=== PATIENT | female | born 1995 | race Caucasian/White ===

== ENCOUNTER 2021-12-16 23:20 | Emergency (ER) | payer OTHER ==
[~2021-12-16] VITALS: Ht 162.6 cm; Wt 91.6 kg
[2021-12-16 23:28] VITALS: BP 141/78
--- NOTE | 2021-12-16 23:32 | NUR ---
PT TAKEN TO ER BED 07
[2021-12-16] MEDS ORDERED: DEXAMETHASONE 4 MG/ML VIAL PO ONE (23:45)
[2021-12-16] MEDS ORDERED: IBUPROFEN 600 MG TAB PO ONE (23:45)
--- NOTE | 2021-12-16 23:45 | NUR ---
BREANNA KWON AT BEDSIDE EXAMINING PT.
--- NOTE | 2021-12-16 23:52 | NUR ---
26 y/o female bib self, c/o throat pain x2 days. PT STATES SHE HAS RECENTLY GOTTEN OVER A SICKNESS THAT LASTED ALL LAST WEEK INCLUDING SORE THROAT. HER ONLY SYMPTOM NOW IS SORE THROAT AND TODAY IS THE 2ND DAY THAT SHE STATES THE PAIN IS TOO MUCH. DENIES N/V; SKIN IS PINK/WARM/DRY; AAOX4 WITH EVEN AND STEADY GAIT; LUNGS CLEAR BL; HR EVEN AND REGULAR; PT DENIES ANY FEVER, CP, SOB, OR COUGH AT THIS TIME; PATIENT STATES PAIN OF 6/10 AT THIS TIME; VSS; PATIENT POSITIONED FOR COMFORT; HOB ELEVATED; BEDRAILS UP X2; BED DOWN. ER MD MADE AWARE OF PT STATUS. HX: ASTHMA NKA MEDS: ALBUTEROL
--- NOTE | 2021-12-17 00:11 | NUR ---
STREP SWAB COLLECTED AND WALKED TO LAB
[2021-12-17] MEDS ORDERED: AMOX-1230 PO (01:38)
[2021-12-17] MEDS ORDERED: BENZ-300 PO (01:38)
[2021-12-17 01:59] VITALS: BP 141/78
--- NOTE | 2021-12-17 02:00 | NUR ---
Patient discharged with v/s stable. Written and verbal after care instructions given and explained. Patient alert, oriented and verbalized understanding of instructions. Ambulatory with steady gait. All questions addressed prior to discharge. ID band removed. Patient advised to follow up with PMD. Rx of Amoxicillin/Potassium Clav and Benzocaine/Menthol given. Patient educated on indication of medication including possible reaction and side effects. Opportunity to ask questions provided and answered. VSS, A/OX4, UNLABORED BREATHING, AMBULATORY, AND CALM DEMEANOR.
== END 2021-12-17 01:58 | disposition home or self-care (01) ==
LOC: MED 23:20
DX: J02.9 Acute pharyngitis, unspecified (principal); H92.01 Otalgia, right ear; J45.909 Unspecified asthma, uncomplicated
CPT/HCPCS: 87081; 99283; J1100

== ENCOUNTER 2023-05-18 17:13 | Emergency (ER) | payer OTHER ==
[~2023-05-18] VITALS: Ht 162.6 cm; Wt 87.3 kg
[~2023-05-18 17:13] MED LIST: AMOX-1230 PO; BENZ-300 PO
[2023-05-18 17:34] VITALS: BP 154/79; PULSE 125; RESP 20; TEMP 101.6
[2023-05-18] MEDS ORDERED: ACETAMINOPHEN EXTRA STRENGTH 500 MG TAB PO ONE (17:55)
[2023-05-18 19:28] VITALS: BP 133/82; PULSE 127; RESP 18
[2023-05-18] MEDS ORDERED: IBUPROFEN 600 MG TAB PO ONE (19:40)
[2023-05-18 19:44] LABS: FLU A ANTIGEN negative (NEGATIVE); FLU B ANTIGEN NEGATIVE (NEGATIVE)
[2023-05-18 20:11] LABS: APPEARANCE,URINE CLEAR (CLEAR); BILIRUBIN,URINE NEGATIVE (NEGATIVE); BLOOD, URINE TRACE-I (NEGATIVE); COLOR,URINE YELLOW (YELLOW); LEUKOCYTE ESTERASE ,URINE 1+ (NEGATIVE); NITRITE, URINE NEGATIVE (NEGATIVE); PROTEIN,URINE NEGATIVE (NEGATIVE); UGLUCOSE 2+ (NEGATIVE)
[2023-05-18 20:16] LABS: BACTERIA,URINE FEW /HPF (None Seen); MUCUS,URINE 2+ /LPF (None Seen); SQUAMOUS EPITHELIAL CELL,UR 4-10 (MOD) /LPF (0-3 (FEW))
[2023-05-18 20:30] VITALS: O2SAT 97
[2023-05-18] MEDS ORDERED: IBUP-2218 PO (20:36)
[2023-05-18] MEDS ORDERED: CEPH-588 PO (20:36)
[2023-05-18] MEDS ORDERED: BENZ-300 PO (20:36)
[2023-05-18 20:42] VITALS: TEMP 98.3
== END 2023-05-18 20:42 | disposition home or self-care (01) ==
LOC: MED 17:13
DX: B34.9 Viral infection, unspecified (principal); N39.0 Urinary tract infection, site not specified; R03.0 Elevated blood-pressure reading, without diagnosis of hypertension; R68.83 Chills (without fever); J02.9 Acute pharyngitis, unspecified; H92.03 Otalgia, bilateral; R11.0 Nausea; J45.909 Unspecified asthma, uncomplicated; Z79.899 Other long term (current) drug therapy; Z20.822 Contact with and (suspected) exposure to COVID-19
CPT/HCPCS: 81001; 81025; 87081; 87086; 99283

== ENCOUNTER 2024-04-27 21:38 | Emergency (ER) | payer SELFPAY ==
[~2024-04-27] VITALS: Ht 162.6 cm; Wt 78.1 kg
[~2024-04-27 21:38] MED LIST changes: +CEPH-588 PO; +IBUP-2218 PO
[2024-04-27 21:48] VITALS: BP 121/73; PULSE 81; RESP 14; TEMP 97.6; O2SAT 99
[2024-04-27 22:11] VITALS: O2SAT 99
[2024-04-27 22:18] LABS: APPEARANCE,URINE SLIGHTLY CLOUDY (CLEAR); BILIRUBIN,URINE 1+ (NEGATIVE); BLOOD, URINE 3+ (NEGATIVE); COLOR,URINE RED (YELLOW); LEUKOCYTE ESTERASE ,URINE NEGATIVE (NEGATIVE); NITRITE, URINE NEGATIVE (NEGATIVE); PROTEIN,URINE 2+ (NEGATIVE); UGLUCOSE NEGATIVE (NEGATIVE); UROBILINOGEN,URINE 0.2 EU/dL (0.2 - 1)
[2024-04-27 22:21] LABS: ICTOTEST NEGATIVE (NEGATIVE)
[2024-04-27 22:22] LABS: BACTERIA,URINE 1+ /HPF (None Seen); MUCUS,URINE None Seen /LPF (None Seen); RBC,URINE 50-80 /HPF (0-5); SQUAMOUS EPITHELIAL CELL,UR 0-3 (FEW) /LPF (0-3 (FEW)); WBC,URINE 0-5 /HPF (0-5)
[2024-04-27] MEDS: KETOROLAC 30 MG/ML VIAL IM ONE (22:34)
[2024-04-27 22:36] LABS: BASOPHILS % (AUTO) 0.5 % (0.0-2.0); EOSINOPHILS # (AUTO) 0.1 K/uL (0-0.4); EOSINOPHILS % (AUTO) 1.3 % (0.0-4.0); HEMATOCRIT 34.6 % (36-48); HEMOGLOBIN 11.9 g/dL (12.0-16.0); LYMPHOCYTES % (AUTO) 26.7 % (20.5-51.1); MEAN CORPUSCULAR HEMOGLOBIN 30 pg (27-31); MEAN CORPUSCULAR HGB CONC 34 g/dL (33-37); MEAN CORPUSCULAR VOLUME 87.5 fL (80-94); MONOCYTES # (AUTO) 0.4 K/uL (0.8-1.0); MONOCYTES % (AUTO) 5.6 % (1.7-9.3); NEUTROPHILS % (AUTO) 65.9 % (42.2-75.2); PLATELET COUNT (AUTO) 231 K/uL (140-450); RED BLOOD CELL COUNT(AUTO) 3.95 MIL/uL (4.20-5.40); RED CELL DISTRIBUTION WIDTH 13.9 % (11.6-13.7); WHITE BLOOD COUNT (AUTO) 7.6 K/uL (4.8-10.8)
[2024-04-27 22:51] LABS: ANION GAP 11.4 (8-16); CARBON DIOXIDE 28.3 mmol/L (21-32); CREATININE 0.6 mg/dL (0.6-1.3); POTASSIUM 3.7 mmol/L (3.5-5.1)
[2024-04-28] MEDS ORDERED: MEDR10TA PO (00:26)
== END 2024-04-28 00:34 | disposition home or self-care (01) ==
LOC: MED 21:38
DX: N92.4 Excessive bleeding in the premenopausal period (principal); N93.9 Abnormal uterine and vaginal bleeding, unspecified; J45.909 Unspecified asthma, uncomplicated; Z79.1 Long term (current) use of non-steroidal anti-inflammatories (NSAID); Z79.2 Long term (current) use of antibiotics; Z79.899 Other long term (current) drug therapy
CPT/HCPCS: 36415; 76856; 80048; 81001; 81025; 85025; 93976; 96372; 99285; J1885